=== PATIENT | male | born 1955 | race Two or more races ===

== ENCOUNTER 2017-08-08 05:36 | Inpatient (IN) | payer OTHER ==
[~2017-08-08] VITALS: Ht 170.2 cm; Wt 83.9 kg
[~2017-08-08 05:36] MED LIST: ACETAMINOPHEN 325 MG TABLET ONE; CEFAZOLIN SODIUM/DEXTROSE,ISO 50 ML IV ONE; CELECOXIB 100 MG CAPSULE ONE; oxyCODONE HCL SR 10MG TAB.SR.12H PO ONE
--- NOTE | 2017-08-08 05:40 | NUR ---
PLZ SEE PRE OP ASSESSMENT FOR MORE INFORMATION
[2017-08-08] MEDS ORDERED: KETOROLAC TROMETHAMINE INJ 30 MG/ML VIAL ONE (05:57)
[2017-08-08] MEDS ORDERED: ANESTHESIA TRAY IN PYXIS 1 EA TRAY MC ONE (05:57)
[2017-08-08] MEDS ORDERED: BUPIVACAINE 0.25% 75 MG/30 ML VIAL ONE (05:58)
[2017-08-08] MEDS ORDERED: BACITRACIN 50000 UNITS/VIAL ONE (05:58)
[2017-08-08] MEDS ORDERED: MORPHINE SULFATE/PF 10 MG/10ML (1MG/ML) AMPUL ONE (06:29)
[2017-08-08] MEDS ORDERED: MIDAZOLAM HCL 2 MG/2ML VIAL ONE (06:30)
[2017-08-08] MEDS ORDERED: BUPIVACAINE 0.75% DEXT-PF 2 ML AMPUL ONE (06:32)
[2017-08-08] MEDS ORDERED: AMLO10TA6 PO (06:56)
[2017-08-08] MEDS ORDERED: TRANEXAMIC ACID 3,000 MG in SODIUM CHLORIDE IRRIG SOLUTION 70 ML IR ONE (07:30)
[2017-08-08] MEDS ORDERED: ONDANSETRON HCL/PF 4 MG/2 ML VIAL IVP PRN (11:30)
[2017-08-08] MEDS ORDERED: diphenhydrAMINE HCL 25 MG CAPSULE PO PRN (11:30)
[2017-08-08] MEDS ORDERED: CLONIDINE HCL 0.1 MG TABLET PO PRN (11:30)
[2017-08-08] MEDS ORDERED: MENTHOL/CETYLPYRD (CEPACOL) 1 LOZ LOZENGE MM PRN (11:30)
[2017-08-08] MEDS ORDERED: ZOLPIDEM TARTRATE 5 MG TABLET PO PRN (11:30)
[2017-08-08] MEDS ORDERED: HYDROMORPHONE INJ 2 MG/ML DISP.SYRIN SQ PRN (11:30)
[2017-08-08] MEDS ORDERED: MAGNESIUM HYDROXIDE 30 ML UDC PO PRN (11:30)
[2017-08-08] MEDS ORDERED: SENNOSIDES 8.6 MG TABLET PO PRN (11:30)
[2017-08-08] MEDS ORDERED: BISACODYL SUPP (10 MG) 10 MG/SUPP.RECT SUPP.RECT RC PRN (11:30)
[2017-08-08] MEDS ORDERED: IV D5/0.45 NACL 1,000 ML IV PRN (11:30)
[2017-08-08] MEDS ORDERED: ACETAMINOPHEN 325 MG TABLET PO PRN (11:30)
[2017-08-08] MEDS ORDERED: NALOXONE HCL 0.4 MG/ML AMPUL IV PRN (11:30)
[2017-08-08] MEDS ORDERED: MORPHINE SULFATE INJ 4 MG/ML DISP.SYRIN IM PRN (11:30)
--- NOTE | 2017-08-08 11:30 | NUR ---
METAL WEATHER STRIPPER NOTE RECEIVED PT FROM OR. PT UNDERWENT TKA. PAIN TOLERABLE AT THIS MOMENT. PT TO HAVE CONSULT FROM PT AND PAIN MANAGEMENT (VIA DR. GLORIA). ADMISSION ORDERS FAXED TO PHARMACY. ALL OTHER ORDERS EXECUTED. PT WITH FC, TO BE DC POST OP DAY 1. SAFETY MEASURES IN PLACE, CALL LIGHT WITHIN REACH. WILL CONTINUE TO MONITOR.
[2017-08-08 12:00] VITALS: BP 145/90
[2017-08-08] MEDS: HYDROCODONE/APAP 10/325MG 1 EA TABLET PO PRN ×3 (12:46→21:45)
[2017-08-08] MEDS ORDERED: hydrALAZINE HCL 25 MG TABLET PO PRN (13:00)
[2017-08-08] MEDS: ANCEF 1 GM/50 ML D5W IV SCH ×4 (14:25→23:21)
[2017-08-08 16:00] VITALS: BP 166/93
[2017-08-08] MEDS: DOCUSATE SODIUM 100 MG CAPSULE PO SCH (16:52)
[2017-08-08] MEDS: MAG HYDROX/AL HYDROX/SIMETH 30 ML UDC PO PRN (16:52)
--- NOTE | 2017-08-08 18:54 | NUR ---
WALL TAPER NOTE RECEIVED PT FROM OR. PT UNDERWENT TKA. PAIN TOLERABLE AT THIS MOMENT. PT TO HAVE CONSULT FROM PT AND PAIN MANAGEMENT (VIA DR. GLORIA). ADMISSION ORDERS FAXED TO PHARMACY. ALL OTHER ORDERS EXECUTED. PT WITH FC, TO BE DC POST OP DAY 1. SAFETY MEASURES IN PLACE, CALL LIGHT WITHIN REACH. WILL CONTINUE TO MONITOR. Addendum: 08/08/17 at 1857 by SANDEEP CASAS ACCIDENTAL DUPLICATE NOTE.
--- NOTE | 2017-08-08 18:56 | NUR ---
RN CLOSING NOTE PT IN BED RESTING. ALL PT NEEDS ANTICIPATED AND MET. SAFETY MEASURES IN PLACE, CALL LIGHT IN REACH. WILL ENDORSE TO STRATEGIC PARTNERSHIP MANAGER FOR PARKER.
--- NOTE | 2017-08-08 19:15 | NUR ---
MS RN OPENING NOTES RECEIVED PT RESTING IN BED, A & O X 4, NO SOB, NO ACUTE CHANGES, VERY MILD C/O PAIN NOTED 03/09, PT HAD NORCO EARLIER & WAS EFFECTIVE, PER PT. ON TELE MONITORING WITH SR 83. IV ACCESS TO LEFT HAND, INTACT PATENT RUNNING WITH D5 1/2 NS @ 50ML/HR BUT PT REFUSES TO BE CONNECTED TO THE IVF. TAKING GOOD PO INTAKE & TOLERATING WELL. MORENO CATH IN PLACE FLOWING WITH CLEAR YELLOW COLOR URINE. SAFETY MEASURES IN PLACE. BED IN LOW LOCKED POSITION. CALL LIGHT WITHIN REACH. WILL CONTINUE TO MONITOR CLOSELY.
[2017-08-08 20:00] VITALS: BP 152/99
--- NOTE | 2017-08-08 21:00 | NUR ---
SEEN BY DR GLORIA PT SEEN BY DR GLORIA & INSTRUCTIONS GIVEN TO PT BY MD TO TAKE PRN PAIN MEDS NEEDED. PT VERBALIZED UNDERSTANDING. WILL MONITOR CLOSELY.
[2017-08-08] MEDS: PANTOPRAZOLE 40 MG TABLET.DR PO SCH (21:44)
--- NOTE | 2017-08-08 21:45 | NUR ---
PRN TYLENOL GIVEN PT C/O LEFT KNEE PAIN 3, ON CPM MACHINE & WANTED TO TAKE NORCO ONLY @ THIS TIME. PRN NORCO GIVEN, WILL REASSESS FOR EFFECTIVENESS.
--- NOTE | 2017-08-08 21:46 | NUR ---
ADDENDUM PRSandy ISAAC GIVEN @ [id number], NOT TYLENOL. WRONG ENTRY.
[2017-08-09] VITALS: BP 143/89
[2017-08-09] MEDS: HYDROCODONE/APAP 10/325MG 1 EA TABLET PO PRN ×6 (04:04→20:37)
--- NOTE | 2017-08-09 04:04 | NUR ---
PRN NORCO GIVEN PT C/O LEFT KNEE PAIN 05/07 & WANTED TO TAKE NORCO ONLY @ THIS TIME. PRN NORCO GIVEN, HAD SNACK BEFORE TAKING NORCO. WILL REASSESS FOR EFFECTIVENESS.
[2017-08-09 06:11] LABS: BASOPHILS % (AUTO) 0.2 % (0.0-2.0); HEMATOCRIT 40 % (39-51); HEMOGLOBIN 13.7 g/dL (13.5-17.5); LYMPHOCYTES # (AUTO) 1.1 /CMM (0.8-4.8); LYMPHOCYTES % (AUTO) 12.2 % (20.0-44.0); MEAN CORPUSCULAR HGB CONC 34 g/dl (31.0-36.0); MEAN CORPUSCULAR VOLUME 89 fL (80-96); MONOCYTES # (AUTO) 0.8 /CMM (0.1-1.30); MONOCYTES % (AUTO) 8.8 % (2.0-12.0); NEUTROPHILS % (AUTO) 77.8 % (43.0-81.0); PLATELET COUNT (AUTO) 200 /CMM (150-450); RDW COEFFICIENT OF VARIATION 13.8 (11.5-15.0); RED BLOOD CELL COUNT(AUTO) 4.55 MIL/uL (4.5-6.0)
[2017-08-09 06:27] LABS: CALCIUM, SERUM 8.2 mg/dL (8.5-10.1); CREATININE 1.2 mg/dL (0.6-1.3); MAGNESIUM 2.3 mg/dL (1.8-2.4); PHOSPHORUS 3.6 mg/dL (2.5-4.9); POTASSIUM 3.8 mmol/L (3.5-5.1)
--- NOTE | 2017-08-09 06:32 | NUR ---
MS RN CLOSING NOTES PT RESTING IN BED, AWAKE, SLEPT WELL @ NIGHT. A & O X 4, NO SOB, NO ACUTE CHANGES, MILD C/O PAIN VERBALIZED /, PT HAD NORCO EARLIER & WAS EFFECTIVE, PER PT. ON TELE MONITORING WITH SR 78. IV ACCESS TO LEFT HAND, INTACT PATENT RUNNING WITH D5 1/2 NS @ 50ML/HR BUT PT REFUSED TO BE CONNECTED TO THE IVF FOR MOST OF THE SHIFT. MORENO CATH IN PLACE FLOWING WITH DARK YELLOW COLOR URINE. EXPLAINED TO THE PT TO HAVE IVF THAT WOULD HELP TO CHANGE THE COLOR OF CONCENTRATED URINE. PT AGREED & IVF STARTED AGAIN. SAFETY MEASURES IN PLACE. BED IN LOW LOCKED POSITION. @ BEDSIDE. CALL LIGHT WITHIN REACH. WILL ENDORSE TO AM RN FOR CONTINUITY OF CARE.
[2017-08-09] MEDS: MAG HYDROX/AL HYDROX/SIMETH 30 ML UDC PO PRN ×3 (07:15→19:54)
--- NOTE | 2017-08-09 07:36 | NUR ---
RN OPENING NOTES RECEIVED PATIENT IN BED RESTING, AT BEDSIDE. A/OX4, ABLE TO MAKE NEEDS KNOWN. NO ACUTE DISTRESS, NO SOB. COMPLAINED OF KNEE PAIN 6/10, NORCO 10 GIVEN. IV SITE INTACT AND PATENT. MORENO CATHETER IN PLACE, DRAINING CLEAR YELLOW URINE. SAFETY MEASURES IN PLACE. BED IN LOW/LOCKED POSITION, CALL LIGHT IN REACH, SIDERAILS UPX2, HOB ELEVATED. WILL CONTINUE TO MONITOR ACCORDINGLY.
[2017-08-09 08:00] VITALS: BP 176/94
[2017-08-09] MEDS: DOCUSATE SODIUM 100 MG CAPSULE PO SCH ×2 (08:43→16:47)
[2017-08-09] MEDS: ASPIRIN 325 MG TABLET PO SCH ×2 (08:43→16:47)
[2017-08-09] MEDS: TAMSULOSIN 0.4 MG CAP.SR.24H PO SCH (08:43)
[2017-08-09] MEDS: AMLODIPINE BESYLATE 10 MG TABLET PO SCH (08:44)
[2017-08-09] MEDS ORDERED: PANTOPRAZOLE 40 MG TABLET.DR PO ONE (09:30)
--- NOTE | 2017-08-09 11:00 | NUR ---
RN NOTES: DC IVF PER BRIAN CARMONA NP, "OK TO D/C IVF". PATIENT IS EATING, DRINKING FLUIDS, HAD A BOWEL MOVEMENT.
[2017-08-09 16:00] VITALS: BP 162/94
[2017-08-09 16:30] VITALS: BP 157/89
--- NOTE | 2017-08-09 19:30 | NUR ---
MS RN OPENING NOTES: PATIENT SITTING ON CHAIR, AOX4, ON ROOM AIR, BREATHING EVEN AND UNLABORED. APPEARS CALM AND IN NO DISTRESS. CURRENTLY STATES THAT HIS LEFT KNEE PAIN IS SCALED AT 6-7/10 WHENEVER HE IS WALKING WITH THE WALKER, 4 WHEN SITTING. DISCUSSED PAIN MEDICATION SCHEDULE WITH PATIENT, VERBALIZED UNDERSTANDING. PIV OVER L HAND G 20 INTACT AND PATIENT TO FLUSH. LEFT KNEE WITH CLEAN AND INTACT DRESSING, COVERED WITH SONIA BANDAGE. PROVIDED FOR COMFORT AND SAFETY. CALL LIGHT WITHIN REACH. WILL CONT TO MONITOR.
--- NOTE | 2017-08-09 19:39 | NUR ---
RN CLOSING NOTES PATIENT IN STABLE CONDITION. ALL NEEDS ATTENDED AND PROVIDED. KEPT PATIENT SAFE AND COMFORTABLE. PAIN MEDICATIONS GIVEN ORDERED PRN. KEPT PATIENT SAFE AND COMFORTABLE. PATIENT HAD A BOWEL MOVEMENT TODAY. BED IN LOW/LOCKED POSITION, SIDERAILS UPX2, CALL LIGHT IN REACH. ENDORSED TO NIGHT RN FOR PARKER.
[2017-08-09 20:00] VITALS: BP 151/94
--- NOTE | 2017-08-09 21:20 | NUR ---
RN NOTES: DR GLORIA AT BEDSIDE TO ASSESS PATIENT. DISCUSSED PRN PAIN MEDS WITH PT.
[2017-08-09] MEDS: PANTOPRAZOLE 40 MG TABLET.DR PO SCH (22:27)
[2017-08-10] MEDS: HYDROCODONE/APAP 10/325MG 1 EA TABLET PO PRN ×3 (04:29→18:10)
--- NOTE | 2017-08-10 07:47 | NUR ---
MS RN CLOSING NOTES: PATIENT IN BED, AOX4, ON ROOM AIR, BREATHING EVEN AND UNLABORED. APPEARS CALM AND IN NO DISTRESS. WITH DRESSING OVER LEFT KNEE, CLEAN AND INTACT. NO ACUTE CHANGE IN CONDITION NOTED THROUGH SHIFT. DUE MEDS GIVEN. PROVIDED FOR COMFORT AND SAFETY. BED IN LOWEST AND LOCKED POSITION, SIDERAILS UP X 3, CALL LIGHT WITHIN REACH. AT BEDSIDE. WILL ENDORSE TO AM RN FOR PARKER.
[2017-08-10 08:00] VITALS: BP 155/88
--- NOTE | 2017-08-10 08:08 | NUR ---
RN OPENING NOTES PATIENT RECEIVED IN BED SLEEPING, EASILY AROUSABLE DURING CARE, RESPIRATIONS EVEN AND UNLABORED, DENIES ANY PAIN OR DISCOMFORT AT THIS TIME.PT ABLE TO MAKE NEEDS KNOWN. IV ACCESS PATENT AND INTACT NO REDNESS OR INFILTRATION NOTED. SAFETY MEASURES IN PLACE, KEPT CLEAN AND DRY, CALL LIGHT WITHIN EASY REACH WILL CONTINUE TO MONITOR
[2017-08-10] MEDS: AMLODIPINE BESYLATE 10 MG TABLET PO SCH (08:42)
[2017-08-10] MEDS: DOCUSATE SODIUM 100 MG CAPSULE PO SCH ×2 (08:42→16:57)
[2017-08-10] MEDS: TAMSULOSIN 0.4 MG CAP.SR.24H PO SCH (08:42)
[2017-08-10] MEDS: ASPIRIN 325 MG TABLET PO SCH ×2 (08:42→16:57)
[2017-08-10] MEDS ORDERED: Menthol/Cetylpyrd (Cepacol) MM (11:33)
[2017-08-10] MEDS ORDERED: MAG30ORA PO (11:33)
[2017-08-10] MEDS ORDERED: DIPH25CA49 PO (11:33)
[2017-08-10] MEDS ORDERED: MAGN400O6 PO (11:33)
[2017-08-10] MEDS ORDERED: CLON0.1T14 PO (11:33)
[2017-08-10] MEDS ORDERED: DOCU-141 PO (11:33)
[2017-08-10] MEDS ORDERED: SENN-167 PO (11:33)
[2017-08-10] MEDS ORDERED: TAMS-12 PO (11:33)
[2017-08-10] MEDS ORDERED: PANT40TA2 PO (11:33)
[2017-08-10] MEDS ORDERED: ACET325T53 PO (11:33)
[2017-08-10] MEDS ORDERED: ASPI-992 PO (11:33)
[2017-08-10] MEDS ORDERED: Hydrocodone/Apap 10/325MG PO (11:33)
[2017-08-10] MEDS ORDERED: HYDR-4076 PO (11:33)
[2017-08-10 16:00] VITALS: BP 134/80
[2017-08-10] MEDS: MAG HYDROX/AL HYDROX/SIMETH 30 ML UDC PO PRN (17:02)
--- NOTE | 2017-08-10 19:25 | NUR ---
MS RN OPENING NOTE RECEIVED PATIENT IN BED, ALERT ORIENTED X4. ON ROOM AIR TOLERATING WELL. IN NO APPARENT DISTRESS OR DISCOMFORT AT THIS TIME. RESPIRATIONS EVEN AND UNLABORED. DENIES PAIN AND SOB AT THIS TIME. PATIENT ABLE TO VERBALIZE NEEDS, AMBULATE WITH ASSIST AND A WALKER. PATIENT WITH L HAND IVC 20G. PATENT AND INTACT, SL. NO INFILTRATION NOTED. DRESSING IS INTACT. PATIENT IS GOING TO BE DISCHARGED/TRANSFERRED TO [facility], WAITING FOR TRANSPORTATION TO PICK HIM UP. DISCHARGE INSTRUCTIONS REVIEWED, REPORT TO BE GIVEN TO THE FACILITY. WILL CONTINUE TO MONITOR UNTIL PATIENT;S DEPARTURE.
--- NOTE | 2017-08-10 19:50 | NUR ---
RN CLOSING NOTES PATIENT IN BED SLEEPING, EASILY AROUSABLE DURING CARE, RESPIRATIONS EVEN AND UNLABORED, DENIES ANY PAIN OR DISCOMFORT AT THIS TIME.PT ABLE TO MAKE NEEDS KNOWN. IV ACCESS PATENT AND INTACT NO REDNESS OR INFILTRATION NOTED. ALL DISCHARGE INSTRUCTIONS REVIEWED WITH PT AND SIGNED, SAFETY MEASURES IN PLACE, KEPT CLEAN AND DRY, CALL LIGHT WITHIN EASY REACH ENDORSED TO NEXT SHIFT TO GIVE REPORT TO FACILITY AND COMPLETE BELONGINGS LIST AND REMOVE IV
[2017-08-10 20:00] VITALS: BP 122/83
--- NOTE | 2017-08-10 20:00 | NUR ---
SPOKE TO LEANOR AT [facility], [place], REPORT GIVEN REGARDING PATIENT PRIOR TO THE TRANSFER. WILL PREPARE THE PATIENT FOR TRANSFER.
--- NOTE | 2017-08-10 20:45 | NUR ---
MS MUCK OPERATOR NOTE PATIENT WAS PICKED UP BY AMBULANCE TO BE TRANSFERRED TO [facility]. ALERT ORIENTED X4, ON ROOM AIR, TOLERATING WELL, DENIES SOB. RESPIRATIONS EVEN AND UNLABORED, REPORTS TIGHTNESS AND SORE SENSATION ON THE SURGICAL AREA, AMBULATES WITH WALKER AND A BRACE AROUND THE OPERATED LEG. DRESSING IS INTACT AND CLEAN. PATIENT STABLE, VITALS SIGNS: BP122/83, HR: 101, RR:18, TEMP:98.6F, O2 SAT: 96. REPORT GIVEN TO PARAMEDICS REGARDING PATIENT CONDITION, HX AND RECENT MEDICATIONS RECEIVED. DC INSTRUCTION REINFORCED HARD COPIES ALONG WITH MEDICAL RECORDS PROVIDED TO THE PATIENT, BELONGINGS CHECKED AND ACCOUNTED FOR, IVC REMOVED, TIP INTACT. ID BAND REMOVED. PATIENT WAS TAKEN FROM THE UNIT AT 2034.
== END 2017-08-10 20:25 | DRG 470 ==
LOC: DS 05:36 → MED 10:33
PROVIDERS: ADMIT Internal Medicine; ATTEND Specialist
PROC: 0SRD0J9 Replacement of Left Knee Joint with Synthetic Substitute, Cemented, Open Approach (ICD-10-PCS; principal; 2017-08-08 06:30)
DX: M17.12 Unilateral primary osteoarthritis, left knee (principal); I10 Essential (primary) hypertension; E78.5 Hyperlipidemia, unspecified; K21.9 Gastro-esophageal reflux disease without esophagitis
CPT/HCPCS: 36415; 80048-TC; 83735-TC; 84100-TC; 85025-TC; 86850-TC; 86921-TC; 87081-TC; 88305-TC; 88311-TC; 97110-TC; 97116-TC; 97530-TC; 97535-TC; 97760-TC; A4217; A6402; C1713; J0690; J1200; J1885; J2250; J2270; J2274; J3490; J7060; L1830; Z7610